=== PATIENT | female | born 1960 | race Caucasian/White ===

== ENCOUNTER 2018-12-12 12:58 | Emergency (ER) | payer OTHER ==
[~2018-12-12] VITALS: Ht 152.4 cm; Wt 44.0 kg
[2018-12-12] MEDS ORDERED: LISINOPRIL20 MG PO (14:55)
[2018-12-12] MEDS ORDERED: ADVAIR HFA 230M12 GM INH (14:56)
[2018-12-12] MEDS ORDERED: VENTOLIN HFA 1818 GM INH (14:56)
[2018-12-12] MEDS ORDERED: PREMARIN0.625 MG PO (14:56)
[2018-12-12] MEDS ORDERED: TESSALON PERLE100 MG PO (14:57)
[2018-12-12] MEDS ORDERED: PROTONIX40 M1 PO (14:57)
[2018-12-12 17:00] LABS: HEMATOCRIT 37.9 % (37.0-47.0); HEMOGLOBIN 12.8 gm/dL (12.0-15.0); MCH 33.5 pg (26.0-34.0); MCHC 33.6 g/dL (28.0-37.0); MCV 99.7 fL (80.0-100.0); RBC 3.8 mil/uL (4.20-5.00); RDW 14.2 % (10.5-14.5); WBC 7.4 thou/uL (4.0-11.0)
[2018-12-12 17:09] LABS: CALCIUM 8.7 mg/dL (8.5-10.1); CREATININE 0.7 mg/dL (0.6-1.0); POTASSIUM 3.9 mmol/L (3.5-5.1)
[2018-12-12 17:15] LABS: ALBUMIN 3.6 g/dL (3.4-5.0); TOTAL BILIRUBIN 0.2 mg/dL (<0.1-1.0)
[2018-12-12] MEDS ORDERED: NORCO 5-325 TA1 EAC1 PO (19:08)
[2018-12-12 19:29] VITALS: BP 175/96
== END 2018-12-12 19:30 | disposition home or self-care (01) ==
LOC: ER 12:58
PROVIDERS: Physician Assistant
DX: G62.9 Polyneuropathy, unspecified (principal); R60.0 Localized edema; F17.210 Nicotine dependence, cigarettes, uncomplicated; Z88.6 Allergy status to analgesic agent; Z88.5 Allergy status to narcotic agent; Z88.2 Allergy status to sulfonamides; Z91.041 Radiographic dye allergy status; Z88.1 Allergy status to other antibiotic agents